=== PATIENT | male | born 1985 | race Two or more races ===

== ENCOUNTER 2017-03-16 08:03 | Emergency (ER) | payer SELFPAY ==
[~2017-03-16] VITALS: Ht 180.3 cm; Wt 108.9 kg
[~2017-03-16 08:03] MED LIST: AZIT250T6 PO; VENTOLIN HFA18 GM IH
[2017-03-16 08:14] VITALS: BP 136/87
[2017-03-16] MEDS ORDERED: NEOMY/BACITR/POLYMYXIN OINT PACKET. TP ONE (08:30)
[2017-03-16] MEDS ORDERED: DIPHTH,PERTUSS(ACELL),TET TOX 0.5 ML DISP.SYRIN. VAX IM ONE (08:30)
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
== END 2017-03-16 09:08 | disposition home or self-care (01) ==
LOC: ER 08:03
DX: T20.67XA Corrosion of second degree of neck, initial encounter (principal); T65.91XA Toxic effect of unspecified substance, accidental (unintentional), initial encounter; Y93.89 Activity, other specified; Y92.89 Other specified places as the place of occurrence of the external cause; Y99.8 Other external cause status
CPT/HCPCS: 90471; 90715; 99283-25